=== PATIENT | female | born 1935 ===

== ENCOUNTER 2020-03-05 06:00 | Outpatient (RCR) | payer MEDICARE, SELFPAY | END 2020-04-03 23:59 | disposition home or self-care (01) | LOC: GPT 06:00 | PROVIDERS: PCP Nurse Practitioner Family; Referring Provider Nurse Practitioner Family; Visit Provider Nurse Practitioner Family | DX: M25.551 Pain in right hip (principal) | CPT/HCPCS: 97032; 97110; 97112; 97116; 97161; 97164; 97530 ==

== ENCOUNTER 2020-04-04 06:00 | Outpatient (RCR) | payer MEDICARE, SELFPAY | END 2020-05-04 23:59 | disposition home or self-care (01) | LOC: GPT 06:00 | PROVIDERS: PCP Nurse Practitioner Family; Referring Provider Nurse Practitioner Family; Visit Provider Nurse Practitioner Family | DX: M25.551 Pain in right hip (principal) | CPT/HCPCS: 97110; 97112; 97530 ==